=== PATIENT | female | born 1940 | race Caucasian/White ===

== ENCOUNTER → 2016-06-29 | Outpatient (CLI) | payer MEDICARE, OTHER ==
[~2016-06-29] MED LIST: ATIVAN 0.50.5 MG/TAB PO; LORTAB 5/500 501 TAB PO; NITROQUICK0.4 MG SL; PEPCID 20MG TAB20 MG PO; ZOFRAN8 MG PO; ZOLOFT; ZOLOFT 50MG50 MG PO
== END ==
LOC: MC.RAD 10:19
DX: Z12.31 Encounter for screening mammogram for malignant neoplasm of breast (principal)

== ENCOUNTER → 2018-07-04 | Outpatient (CLI) | payer MEDICARE, OTHER ==
[~2018-07-04] MED LIST changes: +ASPIRIN E.C. 8181 MG PO; +LIPITOR 10MG10 MG PO; +NITROSTAT0.4 MG/TAB SL
== END ==
LOC: MC.RAD 10:51
DX: Z12.31 Encounter for screening mammogram for malignant neoplasm of breast (principal)

== ENCOUNTER 2019-07-21 12:00 | Inpatient (IN) | payer MEDICARE, OTHER ==
[2019-07-21] VITALS (230 sets, daily range): BP systolic 121–131; BP diastolic 51–64; PULSE 52–66; TEMP 97.8–97.9; O2SAT 78–100
[~2019-07-21] VITALS: Ht 167.6 cm; Wt 75.3 kg
[2019-07-21 12:54] LABS: BASO # 0.1 (0.0-0.2); BASO % 0.7 % (0.0-2.0); EOS # 0.1 (0.0-0.7); EOS % 0.9 % (0-4.0); GRAN # 5.8 (1.4-6.5); HEMATOCRIT 38.3 % (37.0-47.0); HEMOGLOBIN 12.3 g/dl (12.5-16.0); LYMPH # 1.7 (1.2-3.4); LYMPH % 20.7 % (20.0-51.0); MEAN CELL VOLUME 91 fl (80.0-100.0); MEAN CORPUSCULAR HEMOGLOBIN 29 pg (27.0-31.0); MEAN CORPUSCULAR HGB CONC 32 g/dl (33.0-37.0); MEAN PLATELET VOLUME 10.8 fl (7.4-10.4); MONO # 0.5 (0.1-0.6); MONO % 6.5 % (1.7-9.3); PLATELET COUNT 316 K/mm3 (130-400); RED BLOOD COUNT 4.19 M/mm3 (4.10-5.30); REDCELL DISTRIBUTION WIDTH-CV 15.3 % (11.5-14.5)
[2019-07-21 13:00] LABS: PROTHROMBIN TIME 12.2 SECONDS (9.7-12.8)
[2019-07-21 13:06] LABS: ALANINE AMINOTRANSFERASE 16 U/L (4-34); ALBUMIN 4.2 gm/dL (3.5-5.0); ALKALINE PHOSPHATASE 87 U/L (50-136); ANION GAP 9 mmol/L (7-16); AST,SGOT 22 U/L (15-37); BILIRUBIN,TOTAL 0.5 mg/dL (0.0-1.0); BLOOD UREA NITROGEN 17 mg/dL (7-17); CALCIUM 9.2 mg/dL (8.4-10.2); CARBON DIOXIDE 24 mmol/L (22-30); CHLORIDE 107 mmol/L (98-107); CREATININE, serum 0.78 (0.52-1.25); GLUCOSE 105 mg/dL (74-106); LIPASE 63 U/L (23-300); POTASSIUM 4.2 mmol/L (3.4-5.0); SODIUM 140 mmol/L (137-145); TOTAL PROTEIN 7.2 gm/dL (6.4-8.2)
[2019-07-21 13:18] LABS: TROPONIN-I < 0.012 ng/mL (0.000-0.035)
[2019-07-21 13:23] LABS: D-DIMER < 200.00 ng/mLDDu (200-230)
[2019-07-21 16:39] LABS: COLLECTION METHOD CLEAN CATCH
[2019-07-21 17:10] LABS: PH 7 (5-8); SQUAMOUS EPITHELIAL 0-2 /hpf; URINE APPEARANCE Clear; URINE BACTERIA None Seen /hpf; URINE BILIRUBIN Negative (NEGATIVE); URINE BLOOD Negative (NEGATIVE); URINE COLOR Yellow; URINE GLUCOSE Negative (NEGATIVE); URINE KETONE 1+ (NEGATIVE); URINE LEUKOCYTE ESTERASE Trace (NEGATIVE); URINE NITRATE Negative (NEGATIVE); URINE PROTEIN(semi-quant) Negative (NEGATIVE); URINE RBC 0-2 /hpf; URINE UROBILINOGEN Negative (NEGATIVE)
--- NOTE | 2019-07-21 18:15 | NUR ---
Phone report received from Blanca RN at 1735. Pt arrived to [facility] room 15 at 1815 via stretcher, on heart monitor. Pt A/Ox3. Pt transferred to [facility] bed and connected to CRM. HR SB 50s on monitor. Pt remains on Nitro gtt through Right AC PIV. Pt c/o chest pain in front as "uncomfortable" 06/16. Pt's dtr at bedside. Dr Vo in room soon after pt arrived. No new orders at this time. Discussed plan of care with pt and pt's dtr r/t medications, labs and echo in morning. Both verbalized understanding. Food tray ordered for pt. Call light in reach.
--- NOTE | 2019-07-21 19:28 | NUR ---
Report given to ELSA Lucio.
--- NOTE | 2019-07-21 20:00 | NUR ---
PATIENT SOCIAL AND HUNGRY, HAVING DINNER AT THIS TIME, DENIES PAIN OR WEAKNESS,
[2019-07-22] VITALS (201 sets, daily range): BP systolic 105–131; BP diastolic 51–73; PULSE 48–70; TEMP 98–98.2; O2SAT 73–100
[2019-07-22 08:04] LABS: BASO # 0.1 (0.0-0.2); BASO % 0.8 % (0.0-2.0); EOS # 0.2 (0.0-0.7); EOS % 2.8 % (0-4.0); GRAN # 4.2 (1.4-6.5); GRAN % 67.7 % (42.2-75.2); HEMOGLOBIN 11.5 g/dl (12.5-16.0); LYMPH # 1.3 (1.2-3.4); LYMPH % 21.5 % (20.0-51.0); MEAN CELL VOLUME 92 fl (80.0-100.0); MEAN CORPUSCULAR HEMOGLOBIN 30 pg (27.0-31.0); MEAN CORPUSCULAR HGB CONC 33 g/dl (33.0-37.0); MEAN PLATELET VOLUME 11.3 fl (7.4-10.4); MONO # 0.4 (0.1-0.6); MONO % 6.9 % (1.7-9.3); PLATELET COUNT 302 K/mm3 (130-400); RED BLOOD COUNT 3.85 M/mm3 (4.10-5.30); REDCELL DISTRIBUTION WIDTH-CV 15.3 % (11.5-14.5)
[2019-07-22 08:09] LABS: HEMATOCRIT 35.3 % (37.0-47.0)
[2019-07-22 08:20] LABS: ANION GAP 6 mmol/L (7-16); BLOOD UREA NITROGEN 19 mg/dL (7-17); CALCIUM 8.5 mg/dL (8.4-10.2); CARBON DIOXIDE 22 mmol/L (22-30); CHLORIDE 111 mmol/L (98-107); CREATININE, serum 0.74 (0.52-1.25); GLUCOSE 102 mg/dL (74-106); POTASSIUM 4.1 mmol/L (3.4-5.0); SODIUM 140 mmol/L (137-145)
[2019-07-22 08:27] LABS: TROPONIN-I < 0.012 ng/mL (0.000-0.035)
[2019-07-22] MEDS ORDERED: IMDUR 30MG30 MG/TAB PO (11:20)
[2019-07-22] MEDS ORDERED: LIPITOR20 MG PO (11:20)
--- NOTE | 2019-07-22 12:04 | NUR ---
DISCHARGE PAPERWORK READY FOR PATIENT. PATIENT'S DAUGHTER COMING AT 1230 TO TAKE PATIENT HOME.
--- NOTE | 2019-07-22 12:35 | NUR ---
DISCHARGE INSTRUCTIONS REVIEWED WITH PATIENT INCLUDING PATIENT HEALTH SUMMARY, HOME MEDICATIONS, AND FOLLOWUP INSTRUCTIONS. REVIEWED D/C INSTRUCTIONS WITH PATIENT'S DAUGHTER WELL. IV DISCONTINUED. PT ESCORTED VIA WHEELCHAIR TO PATIENT ADMISSIONS ENTRANCE WHERE DAUGHTER AWAITED WITH VEHICLE. PT'S BELONIGINGS SENT WITH PATIENT.
== END 2019-07-22 12:40 | disposition home or self-care (01) | DRG 313 ==
LOC: COL.ER 12:00 → IMCU 15:28
PROVIDERS: Emergency Medicine; Physician Assistant; ADMIT Student in an Organized Health Care Education/Training Program
DX: R07.89 Other chest pain (principal); R00.1 Bradycardia, unspecified; I10 Essential (primary) hypertension; E78.5 Hyperlipidemia, unspecified; F41.9 Anxiety disorder, unspecified; F32.9 Major depressive disorder, single episode, unspecified; D64.9 Anemia, unspecified; F17.200 Nicotine dependence, unspecified, uncomplicated; I25.2 Old myocardial infarction; Z79.82 Long term (current) use of aspirin
CPT/HCPCS: 99223-AI; 99239; C9113; J1644; J2270; J7030; Q9967

== ENCOUNTER → 2019-10-14 | Outpatient (CLI) | payer MEDICARE, OTHER ==
[~2019-10-14] MED LIST changes: +IMDUR 30MG30 MG/TAB PO; +LIPITOR20 MG PO
== END ==
LOC: MC.RAD 08:25
DX: Z12.31 Encounter for screening mammogram for malignant neoplasm of breast (principal)